=== PATIENT | male | born 1960 | race Two or more races ===

== ENCOUNTER 2019-09-24 13:53 | Emergency (ER) | payer MEDICAID, OTHER ==
[~2019-09-24] VITALS: Ht 165.1 cm; Wt 77.1 kg
[2019-09-24 14:15] VITALS: BP 138/84
[2019-09-24] MEDS ORDERED: HYDROcodone-ACET 5/325MG TAB PO ONE (16:15)
== END 2019-09-24 16:23 | disposition home or self-care (01) ==
LOC: ER 13:53
DX: K04.7 Periapical abscess without sinus (principal)